=== PATIENT | male | born 1975 | race Caucasian/White ===

== ENCOUNTER 2017-12-08 19:08 | Emergency (ER) | payer OTHER ==
--- NOTE | 2017-12-08 20:33 | ED Physician Chart ---
ED Chief Complaint/HPI - Patient Information Date Seen:: 12/08/17 Time Seen:: 20:01 Chief Complaint:: ABD PAIN History of Present Illness:: 42 YR OLD HOMELESS ABD PAIN SOME NAUSEA NO FEVER DRUG ALCOHOL ABUSE Allergies:: Allergies Allergy/AdvReac Type Severity Reaction Status Date / Time No Known Allergies Allergy Verified 12/08/17 19:51 Vitals:: Vital Signs - 8 hr 12/08/17 19:40 Temp 98.6 F HR 78 RR 20 BP 134/85 O2 Sat % 97 ED Review of Systems - Review of Systems General/Constitutional: No fever, No chills, No weight loss, No weakness, No diaphoresis, No edema, No loss of appetite Skin: No skin lesions, No rash, No bruising Head: No headache, No light-headedness Eyes: No loss of vision, No pain, No diplopia ENT: No earache, No nasal drainage, No sore throat, No tinnitus Neck: No neck pain, No swelling, No thyromegaly, No stiffness, No mass noted Cardio Vascular: No chest pain, No palpitations, No PND, No orthopnea, No edema Pulmonary: No SOB, No cough, No sputum, No wheezing GI: Nausea, Pain G/U: No dysuria, No frequency, No hematuria Musculoskeletal: No bone or joint pain, No back pain, No muscle pain Endocrine: No polyuria, No polydipsia Psychiatric: Prior psych history, Depression Hematopoietic: No bruising, No lymphadenopathy Allergic/Immuno: No urticaria, No angioedema Neurological: No syncope, No focal symptoms, No weakness, No paresthesia, No headache, No seizure, No dizziness, No confusion, No vertigo ED Past Medical History - Past Medical History Past Medical History: Other (PSYCH HX AND ALCOHOL DRUG ABUSE) Family Medical History - Family Member Mother History Unknown: Yes ED Physical Exam - Physical Examination Other Gen/Cons comments:: VERY UNKEMPT SMELL VERY DISHEVELED CHRONIC ETOH MUSTY SMELL ED Assessment - Assessment General Assessment: ABD PAIN ETOH DRUG ABUSE HOMELESSNESS ED Septic Shock - . Is Septic Shock (SBP<90, OR Lactate>4 mmol\L) present?: No - <6hrs of presentation: Vital Signs: Vital Signs - 8 hr 12/08/17 19:40 Temp 98.6 F HR 78 RR 20 BP 134/85 O2 Sat % 97 ED Reassessment (Disposition) - Diagnosis Diagnosis:: ETOH ABUSE ABD PAIN
[2017-12-08 20:46] LABS: BASOPHILE ABSOLUTE 0.1 Th/cumm (0-0.2); EOSINOPHILE ABSOLUTE 0.2 Th/cmm (0.1-0.4); LYMPHOCYTE ABSOLUTE 2.3 Th/cmm (1.5-3.0); MEAN CORPUSCULAR HGB CONC 32.9 pg (28.0-36.0); MONOCYTE ABSOLUTE 0.9 Th/cmm (0.3-1.0); RED BLOOD COUNT 4.34 Mil/cmm (4.30-5.70)
[2017-12-08 20:50] LABS: % EOSINOPHILS 2.3 % (0.0-5.0); % LYMPHOCYTES 26.4 % (20.0-50.0); % MONOCYTES 9.9 % (2.0-10.0); % NEUTROPHILS 60.4 % (40.0-80.0); HEMOGLOBIN 12.8 gm/dL (12-16); MEAN CELL VOLUME 89.8 fl (80-99); MEAN CORPUSCULAR HEMOGLOBIN 29.6 pg (26.0-30.0); MEAN PLATELET VOLUME 6.7 fl; NEUTROPHILE ABSOLUTE 5.4 Th/cmm (1.8-8.0); PLATELET COUNT 632 Th/cmm (150-400); RED CELL DISTRIBUTION WIDTH 13.6 % (11.5-20.0); WHITE BLOOD COUNT 8.9 Th/cmm (4.8-10.8)
[2017-12-08 21:03] LABS: ALB/GLOB RATIO 1.5 (1.0-1.8); ALBUMIN 3.7 gm/dL (4.2-5.5); ALKALINE PHOSPHATASE 81 U/L (34-104); ANION GAP 9.1 (7.0-16.0); BILIRUBIN,TOTAL 0.3 mg/dL (0.3-1.0); BUN - UREA NITROGEN 15 mg/dL (7-25); CALCIUM SERUM 9.2 mg/dL (8.6-10.3); CARBON DIOXIDE 30.3 mEq/L (21.0-31.0); CHLORIDE 102 mEq/L (98-107); CREATININE - SERUM 0.6 mg/dL (0.7-1.3); GFR AFRICAN-AMERICAN > 60.0 ml/min (>90); GFR NON AFRICAN-AMERICAN > 60.0 ml/min; GLUCOSE 103 mg/dL (70-105); POTASSIUM SERUM 3.4 mEq/L (3.5-5.1); SGOT 13 U/L (13-39); SGPT/ALT 6 U/L (7-52); SODIUM SERUM 138 mEq/L (136-145); TOTAL PROTEIN,SERUM 6.2 gm/dL (6.0-8.3)
== END 2017-12-08 22:00 | disposition home or self-care (01) ==
LOC: ER 19:08
DX: R10.9 Unspecified abdominal pain (principal); F10.10 Alcohol abuse, uncomplicated; R11.0 Nausea
CPT/HCPCS: 36415-UA; 80053-TC; 85025-TC; Z7502

== ENCOUNTER 2018-01-15 13:26 | Emergency (ER) | payer OTHER ==
--- NOTE | 2018-01-15 15:26 | ED Physician Chart ---
ED Chief Complaint/HPI - Patient Information Date Seen:: 01/15/18 Time Seen:: 13:45 Chief Complaint:: Dysphagia History of Present Illness:: onset x one hour of intermittent dysphagia and throat FB sensation which resolved upon ER arrival; pt has been able to tolerate regular diet and all types of food and water after above s/s; pt denies trauma, FB ingestion, FB exposure, LOC, ALOC, AMS, H/As, S/T, neck pain, cough, C/P, SOB, Abd. 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 Allergies:: Allergies Allergy/AdvReac Type Severity Reaction Status Date / Time No Known Allergies Allergy Verified 12/08/17 19:51 Vitals:: Vital Signs - 8 hr 01/15/18 13:46 Temp 98.2 F HR 75 RR 18 BP 127/71 O2 Sat % 97 Historian:: Patient, EMS Review:: Nurse's Note Reviewed, Old Chart Reviewed, EMS run form Reviewed ED Review of Systems - Review of Systems General/Constitutional: No fever, No chills, No weight loss, No weakness, No diaphoresis, No edema, No loss of appetite Skin: No skin lesions, No rash, No bruising Head: No headache, No light-headedness Eyes: No loss of vision, No pain, No diplopia ENT: No earache, No nasal drainage, No sore throat, No tinnitus Neck: No neck pain, No swelling, No thyromegaly, No stiffness, No mass noted Cardio Vascular: No chest pain, No palpitations, No PND, No orthopnea, No edema Pulmonary: No SOB, No cough, No sputum, No wheezing GI: No nausea, No vomiting, No diarrhea, No pain, No melena, No hematochezia, No constipation, No hematemesis G/U: No dysuria, No frequency, No hematuria, No nacturia Musculoskeletal: No bone or joint pain, No back pain, No muscle pain Endocrine: No polyuria, No polydipsia Psychiatric: Prior psych history, No depression, Anxiety, No suicidal ideation, No homicidal ideation, Auditory hallucination, No visual hallucination Hematopoietic: No bruising, No lymphadenopathy Allergic/Immuno: No urticaria, No angioedema Neurological: No syncope, No focal symptoms, No weakness, No paresthesia, No headache, No seizure, No dizziness, No confusion, No vertigo ED Past Medical History - Past Medical History Obtainable: Yes Past Medical History: No significant medical hx Family History: None Social History: Non Smoker, No Alcohol, No Drug Use, Single, Homeless Surgical History: None Psychiatricy History: Schizophrenia, Bipolar, Other (Anxiety) Medication: Reviewed Family Medical History - Family Member Mother History Unknown: Yes ED Physical Exam - Physical Examination General/Constitutional: Awake, Well-developed, well-nourished, Alert, No distress, GCS 15, Non-toxic appearing, Ambulatory Head: Atraumatic Eyes: Lids, conjuctiva normal, PERRL, EOMI Skin: Nl inspection, No rash, No skin lesions, No ecchymosis, Well hydrated, No lymphadenopathy ENMT: External ears, nose nl, TM canals nl, Nasal exam nl, Lips, teeth, gums nl , Oropharynx nl, Tonsils nl Other ENMT comments:: Pharynx/Uvula: WNL; no FBs; no airway obstruction Neck: Nontender, Full ROM w/o pain, No JVD, No nuchal rigidity, No bruit, No mass, No stridor Other Neck comments:: supple; no meningeal signs; no cervical tenderness; no bruits Respiratory: Nl effort/Exclusion, Clear to Auscultation, No Wheeze/Rhonchi/Rales Cardio Vascular: RRR, No murmur, gallop, rubs, NL S1 S2, Carotid/Femoral/Distal pulses equal bilaterally GI: No tenderness/rebounding/guarding, No organomegaly, No hernia, Normal BS's, Nondistended, No mass/bruits, No McBurney tenderness, Rectum exam nl Other GI comments:: no pulsatile masses; good BS : No CVA tenderness Extremities: No tenderness or effusion, Full ROM, normal strength in all extremities, No edema, Normal digits & nails Neuro/Psych: Alert/oriented, DTR's symmetric, Normal sensory exam, Normal motor strength, Judgement/insight normal, Mood normal, Normal gait, No focal deficits Other Neuro/Psych comments:: no focal signs Misc: Normal back, No paraspinal tenderness ED Labs/Radiology/EKG Results - Radiology Results Comments:: pt deferred X-Rays ED Septic Shock - . Is Septic Shock (SBP<90, OR Lactate>4 mmol\L) present?: No - <6hrs of presentation: Vital Signs: Vital Signs - 8 hr 01/15/18 13:46 Temp 98.2 F HR 75 RR 18 BP 127/71 O2 Sat % 97 ED Reassessment (Disposition) - Reassessment Reassessment:: pt tolerated regular food and fluids well in ER; pt has no regurgitation of food ; pt signed out AMA; pt is asymptomatic upon discharge; Reassessment Condition:: Improved - Diagnosis Diagnosis:: Dx: Food Ingestion; Dysphagia; Suspected FB Ingestion; Dysphagia-Resolved - Aftercare/Follow up Instructions Aftercare/Follow-Up Instructions:: Counseled pt regarding lab results/diagnosis & need follow up, Refer to Discharge Instructions, Counseled pt & family regarding lab results/diagnosis & need follow up - Patient Disposition Discharge/Transfer:: Against Medical Advice (RTER prn if existing s/s reoccur and/or get worse and/or any other new s/s occur; ACIs given for all above Dx; Refer to GI Specialist/Rn Float MARQUISE; F/U with PMD in one day or prn; RTER prn if concerned) Condition at Disposition:: Stable, Improved
== END 2018-01-15 14:15 | disposition home or self-care (01) ==
LOC: ER 13:26
DX: R13.10 Dysphagia, unspecified (principal); R09.89 Other specified symptoms and signs involving the circulatory and respiratory systems; F20.9 Schizophrenia, unspecified; Z59.0 Homelessness
CPT/HCPCS: Z7502

== ENCOUNTER 2018-01-16 02:48 | Emergency (ER) | payer OTHER | END 2018-01-16 03:10 | disposition left against medical advice (07) | LOC: ER 02:48 | DX: Z71.1 Person with feared health complaint in whom no diagnosis is made (principal) ==